=== PATIENT | female | born 1960 | race African-American/Black ===

== ENCOUNTER → 2021-10-19 | Day surgery (SDC) | payer OTHER | END | disposition home or self-care (01) | LOC: FMAMMOTONE 09:50 | PROVIDERS: ATTEND Surgery | PROC: 0HBV3ZX Excision of Bilateral Breast, Percutaneous Approach, Diagnostic (ICD-10-PCS; principal; 2021-10-19) | DX: D05.11 Intraductal carcinoma in situ of right breast (principal); D24.2 Benign neoplasm of left breast; N64.1 Fat necrosis of breast; N64.89 Other specified disorders of breast; R92.8 Other abnormal and inconclusive findings on diagnostic imaging of breast | CPT/HCPCS: 19081; 19082; 76098-TC-FY; 87899; 88305-TC; 88341-TC; 88342-TC; A4648 ==

== ENCOUNTER 2022-01-04 04:22 | Inpatient (IN) | payer OTHER ==
[2021-12-25 15:23] VITALS: BMI 28.8
[2022-01-04] MEDS ORDERED: METHYLENE BLUE 50 MG/10 ML AMPUL ONE (10:36)
[2022-01-04] MEDS ORDERED: ONDANSETRON 4 MG/2 ML VIAL IVPUSH PRN (11:21)
[2022-01-04] MEDS ORDERED: ACETAMINOPHEN INJECTION 100 ML IVPB ONE (11:27)
[2022-01-04] MEDS ORDERED: DEXMEDETOMIDINE HCL 200 MCG/2 ML IVPB ONE (11:27)
[2022-01-04] MEDS ORDERED: HYDROmorphone HCl 2 MG/ML VIAL ONE (11:28)
[2022-01-04] MEDS ORDERED: MIDAZOLAM HCL 2 MG/2 ML SINGLE DOSE VIAL ONE (11:28)
[2022-01-04] MEDS ORDERED: SUCCINYLCHOLINE CHLORIDE 200 MG/10 ML SYRINGE ONE (11:28)
[2022-01-04] MEDS ORDERED: ROCURONIUM BROMIDE 50 MG/5 ML SYRINGE ONE (11:28)
[2022-01-04] MEDS ORDERED: PROPOFOL 20 ML ONE ×2 (11:29)
[2022-01-04] MEDS ORDERED: ceFAZolin SODIUM 1 GM VIAL IVPB ONE (11:48)
[2022-01-04] MEDS ORDERED: NEOSTIGMINE METHYLSULFATE 0.5 MG/ML - 10 ML MDV ONE (13:12)
[2022-01-04] MEDS ORDERED: ONDANSETRON 4 MG/2 ML VIAL IVPB PRN (13:46)
[2022-01-04] MEDS ORDERED: ACETAMINOPHEN 500 MG TABLET (FP) PO PRN ×2 (13:46→19:44)
[2022-01-04] MEDS ORDERED: HYDROmorphone HCL CARPU-JECT 2 MG/1 ML DISP.SYRIN IVPB PRN (13:47)
[2022-01-04] MEDS ORDERED: ALPRAZolam 0.25 MG TABLET PO ONE (14:00)
[2022-01-04] MEDS: INSULIN SLIDING SCALE (NOVOLOG) 1 VIAL SQ SCH ×2 (18:24→21:47)
[2022-01-04] MEDS ORDERED: ceFAZolin SODIUM 1 GM VIAL ONE (18:24)
[2022-01-04] MEDS: CEFAZOLIN 1 GM in DEXTROSE 5%-WATER 50 ML IVPB SCH (18:29)
[2022-01-04] MEDS ORDERED: HYDROmorphone HCl 2 MG/ML VIAL IVPB PRN (19:43)
[2022-01-04] MEDS ORDERED: oxyCODONE HCL 5 MG TABLET PO PRN (20:00)
[2022-01-04] MEDS ORDERED: ACETAMINOPHEN 325 MG TABLET (FP) PO PRN (20:00)
[2022-01-04] MEDS: LACTATED RINGERS SOLUTION 1,000 ML/1,000 ML INFUS.BAG IV SCH ×2 (20:18→20:49)
[2022-01-05 03:51] VITALS: TEMP 97.9
[2022-01-05] MEDS: CEFAZOLIN 1 GM in DEXTROSE 5%-WATER 50 ML IVPB SCH (04:52)
[2022-01-05 06:07] VITALS: BP 134/74; PULSE 53
[2022-01-05] MEDS: INSULIN SLIDING SCALE (NOVOLOG) 1 VIAL SQ SCH ×2 (06:35→11:47)
[2022-01-05 09:44] LABS: URINE APPEARANCE CLEAR; URINE BILIRUBIN NEGATIVE (NEGATIVE); URINE COLOR YELLOW; URINE GLUCOSE (UA) NEGATIVE (NEGATIVE); URINE KETONE NEGATIVE (NEGATIVE); URINE LEUK ESTERASE NEGATIVE (NEGATIVE); URINE NITRITE NEGATIVE (NEGATIVE); URINE PROTEIN NEGATIVE (NEGATIVE); URINE UROBILINOGEN 0.2 mg/dL (0.2-1.0)
[2022-01-05] MEDS ORDERED: CEFAZOLIN 1 GM in DEXTROSE 5%-WATER - 50 ML IVPB SCH ×2 (10:51→11:00)
[2022-01-05] MEDS ORDERED: ceFAZolin SODIUM 1 GM VIAL ONE (11:05)
[2022-01-05] MEDS ORDERED: DEXTROSE 5%-WATER - 50 ML IVPB ONE (11:05)
== END 2022-01-05 13:21 | disposition home health service (06) | DRG 581 ==
LOC: J2C 04:22 → EDSTATUS 08:30 → J6S 20:18
PROVIDERS: ADMIT Surgery; ATTEND Surgery
PROC: 0HTT0ZZ Resection of Right Breast, Open Approach (ICD-10-PCS; principal; 2022-01-04 10:00)
PROC: 07B50ZX Excision of Right Axillary Lymphatic, Open Approach, Diagnostic (ICD-10-PCS; 2022-01-04 10:00)
PROC: 0HBU0ZX Excision of Left Breast, Open Approach, Diagnostic (ICD-10-PCS; 2022-01-04 10:00)
PROC: 0HRT07Z Replacement of Right Breast with Autologous Tissue Substitute, Open Approach (ICD-10-PCS; 2022-01-04 10:00)
DX: D05.11 Intraductal carcinoma in situ of right breast (principal); D24.2 Benign neoplasm of left breast; E78.5 Hyperlipidemia, unspecified; E11.9 Type 2 diabetes mellitus without complications
CPT/HCPCS: 19281; 76098-TC-FY; 78195-TC; 81003; 82962; 86850; 86900; 86901; 88307-TC; 88309-TC; 94760; A9541; Q9968